=== PATIENT | male | born 1960 | race Caucasian/White ===

== ENCOUNTER 2021-02-26 16:02 | Inpatient (IN) | payer BC ==
[2021-02-26 18:09] VITALS: BMI 28.0
[2021-02-26] MEDS ORDERED: guaiFENesin 200 MG/10 ML 10 ML UNIT-DOSE CUPS PO PRN (23:24)
[2021-02-26] MEDS ORDERED: P-EPHED 60MG/TRIPROLIDI 2.5MG TABLET PO PRN (23:24)
[2021-02-26] MEDS ORDERED: ACETAMINOPHEN 325 MG TABLET (FP) PO PRN (23:24)
[2021-02-26] MEDS ORDERED: MAG HYDROX/AL HYDROX/SIMETH 30 ML UNIT-DOSE CUP PO PRN (23:24)
[2021-02-26] MEDS ORDERED: NICOTINE POLACRILEX 2 MG GUM BC PRN (23:24)
[2021-02-26] MEDS ORDERED: MAGNESIUM CITRATE 300 ML BOTTLE PO PRN (23:24)
[2021-02-26] MEDS ORDERED: MAGNESIUM HYDROX 2400MG/30ML ORAL SUSPENSION 30 ML CUP PO PRN (23:24)
[2021-02-26] MEDS ORDERED: IBUPROFEN 400 MG TABLET (FP) PO PRN (23:24)
[2021-02-26] MEDS ORDERED: LOPERAMIDE HCL 2 MG CAPSULE PO PRN (23:24)
[2021-02-27] MEDS: hydrOXYzine PAMOATE 25 MG CAPSULE (FP) PO PRN (00:55)
[2021-02-27] MEDS: MELATONIN 5 MG TABLETS PO SCH ×2 (00:55→22:08)
[2021-02-27] MEDS ORDERED: METHADONE HCL 10 MG TABLET PO ONE (09:21)
[2021-02-27] MEDS ORDERED: METHADONE 80 MG, METHADONE 30 MG PO ONE (09:24)
[2021-02-27] MEDS ORDERED: METHADONE HCL 40 MG DISPERSABLE TABLET ONE (09:44)
[2021-02-27] MEDS ORDERED: METHADONE HCL 10 MG TABLET ONE (09:44)
[2021-02-27] MEDS: PRENATAL VITAMINS W/ FOLIC ACID TABLET (FP) PO SCH (09:53)
[2021-02-27 10:40] LABS: HEMATOCRIT 37.4 % (35.4-49); HEMOGLOBIN 12.5 GM/dL (11.7-16.9); MCH 29.1 pg (25.7-33.7); MCHC 33.3 g/dl (32.0-35.9); MEAN CELL VOLUME 87.3 fl (80-96); PLATELET COUNT 293 10^3/uL (134-434); RBC 4.28 M/mm3 (4.00-5.60); RDW 13.5 % (11.9-15.9); WHITE BLOOD COUNT 7.6 K/mm3 (4.0-10.0)
[2021-02-27 11:19] LABS: BLOOD UREA NITROGEN 14.6 mg/dL (7-18)
[2021-02-27 11:40] LABS: CREATININE 0.9 mg/dL (0.55-1.3)
[2021-02-27 11:41] LABS: ALBUMIN 3.5 g/dl (3.4-5.0)
[2021-02-27 11:59] LABS: BILIRUBIN,TOTAL 0.4 mg/dL (0.2-1)
[2021-02-27] MEDS ORDERED: TUBERCULIN PPD 5 TU/0.1ML VIAL ID ONE (15:43)
[2021-02-27] MEDS: THIAMINE HCL 100 MG TABLET (FP) PO SCH (22:08)
[2021-02-28] MEDS ORDERED: METHADONE HCL 40 MG DISPERSABLE TABLET ONE (04:14)
[2021-02-28] MEDS ORDERED: METHADONE HCL 10 MG TABLET ONE (04:14)
[2021-02-28] MEDS ORDERED: METHADONE HCL 10 MG TABLET PO SCH (06:00)
[2021-02-28] MEDS: METHADONE 80 MG, METHADONE 30 MG PO SCH (06:47)
[2021-02-28] MEDS: PRENATAL VITAMINS W/ FOLIC ACID TABLET (FP) PO SCH (09:35)
[2021-02-28] MEDS: hydrOXYzine PAMOATE 25 MG CAPSULE (FP) PO PRN (09:36)
[2021-02-28] MEDS: THIAMINE HCL 100 MG TABLET (FP) PO SCH (21:26)
[2021-02-28] MEDS: MELATONIN 5 MG TABLETS PO SCH (21:26)
[2021-03-01] MEDS ORDERED: METHADONE HCL 40 MG DISPERSABLE TABLET ONE (03:13)
[2021-03-01] MEDS ORDERED: METHADONE HCL 10 MG TABLET ONE (03:13)
[2021-03-01] MEDS: METHADONE 80 MG, METHADONE 30 MG PO SCH (06:51)
[2021-03-01] MEDS: PRENATAL VITAMINS W/ FOLIC ACID TABLET (FP) PO SCH (09:31)
[2021-03-01 13:49] LABS: EPI CELLS 3 /uL (0-25.1); HYALINE CASTS 1 /uL (0-3.1); URINE APPEARANCE CLEAR; URINE BACTERIA 6 /uL (0-1359); URINE BILIRUBIN NEGATIVE (NEGATIVE); URINE COLOR DK YELLOW; URINE GLUCOSE (UA) NEGATIVE (NEGATIVE); URINE KETONE NEGATIVE (NEGATIVE); URINE LEUK ESTERASE TRACE (NEGATIVE); URINE NITRITE NEGATIVE (NEGATIVE); URINE PROTEIN NEGATIVE (NEGATIVE); URINE RBC 9 /uL (0-23.9); URINE UROBILINOGEN 0.2 mg/dL (0.2-1.0); URINE WBC 8 /uL (0-25.8)
[2021-03-01] MEDS: THIAMINE HCL 100 MG TABLET (FP) PO SCH (21:26)
[2021-03-01] MEDS: MELATONIN 5 MG TABLETS PO SCH (21:26)
[2021-03-01] MEDS: hydrOXYzine PAMOATE 25 MG CAPSULE (FP) PO PRN (21:26)
[2021-03-01] MEDS ORDERED: ALBUTEROL SO4 HFA INHALER IH PRN (21:33)
[2021-03-02] MEDS ORDERED: METHADONE HCL 40 MG DISPERSABLE TABLET ONE (04:58)
[2021-03-02] MEDS ORDERED: METHADONE HCL 10 MG TABLET ONE (04:58)
[2021-03-02] MEDS: METHADONE 80 MG, METHADONE 30 MG PO SCH (06:59)
[2021-03-02] MEDS: PRENATAL VITAMINS W/ FOLIC ACID TABLET (FP) PO SCH (09:51)
[2021-03-02] MEDS ORDERED: ASPIRIN 81 MG CHEWABLE TABLETS PO SCH ×2 (11:45→12:00)
[2021-03-02] MEDS ORDERED: PATIENT'S OWN MEDICATION (NON-FORMULARY) (Amlodipine Besylate/Benazepril [Lotrel 10-20 Mg PO SCH (12:15)
[2021-03-02] MEDS: ASPIRIN 81 MG CHEWABLE TABLETS PO SCH (12:40)
[2021-03-02] MEDS ORDERED: PATIENT'S OWN MEDICATION (NON-FORMULARY) (Amlodipine Besylate/Benazepril [Lotrel 10-20 Mg PO ONE (13:00)
[2021-03-02] MEDS: THIAMINE HCL 100 MG TABLET (FP) PO SCH (21:08)
[2021-03-02] MEDS: ATORVASTATIN CA 20 MG TABLET (FP) PO SCH (21:08)
[2021-03-02] MEDS: SUVOREXANT 10 MG TABLET PO PRN (21:08)
[2021-03-03] MEDS ORDERED: METHADONE HCL 10 MG TABLET ONE (04:02)
[2021-03-03] MEDS ORDERED: METHADONE HCL 40 MG DISPERSABLE TABLET ONE (04:02)
[2021-03-03] MEDS: METHADONE 80 MG, METHADONE 30 MG PO SCH (06:45)
[2021-03-03] MEDS: PATIENT'S OWN MEDICATION (NON-FORMULARY) (Amlodipine Besylate/Benazepril [Lotrel 10-20 Mg PO SCH (09:50)
[2021-03-03] MEDS: ASPIRIN 81 MG CHEWABLE TABLETS PO SCH (09:50)
[2021-03-03] MEDS: PRENATAL VITAMINS W/ FOLIC ACID TABLET (FP) PO SCH (09:50)
[2021-03-03] MEDS ORDERED: PT OWN MED DRAWER 7, Y5N ONE (19:31)
[2021-03-03] MEDS: hydrOXYzine PAMOATE 25 MG CAPSULE (FP) PO PRN (21:12)
[2021-03-03] MEDS: ATORVASTATIN CA 20 MG TABLET (FP) PO SCH (21:12)
[2021-03-03] MEDS: THIAMINE HCL 100 MG TABLET (FP) PO SCH (21:12)
[2021-03-03] MEDS: ALBUTEROL SO4 HFA INHALER IH PRN (21:12)
[2021-03-03] MEDS: SUVOREXANT 10 MG TABLET PO PRN (21:13)
[2021-03-04] MEDS ORDERED: METHADONE HCL 10 MG TABLET ONE (02:04)
[2021-03-04] MEDS ORDERED: METHADONE HCL 40 MG DISPERSABLE TABLET ONE (02:05)
[2021-03-04] MEDS: METHADONE 80 MG, METHADONE 30 MG PO SCH (06:23)
[2021-03-04] MEDS: ALBUTEROL SO4 HFA INHALER IH PRN ×2 (08:28→21:20)
[2021-03-04] MEDS: PRENATAL VITAMINS W/ FOLIC ACID TABLET (FP) PO SCH (09:46)
[2021-03-04] MEDS: ASPIRIN 81 MG CHEWABLE TABLETS PO SCH (09:46)
[2021-03-04] MEDS: PATIENT'S OWN MEDICATION (NON-FORMULARY) (Amlodipine Besylate/Benazepril [Lotrel 10-20 Mg PO SCH (09:46)
[2021-03-04] MEDS: SUVOREXANT 10 MG TABLET PO PRN (21:20)
[2021-03-04] MEDS: hydrOXYzine PAMOATE 25 MG CAPSULE (FP) PO PRN (21:21)
[2021-03-04] MEDS: THIAMINE HCL 100 MG TABLET (FP) PO SCH (21:21)
[2021-03-04] MEDS: ATORVASTATIN CA 20 MG TABLET (FP) PO SCH (21:21)
[2021-03-05] MEDS ORDERED: METHADONE HCL 10 MG TABLET ONE (04:57)
[2021-03-05] MEDS ORDERED: METHADONE HCL 40 MG DISPERSABLE TABLET ONE (04:58)
[2021-03-05] MEDS: METHADONE 80 MG, METHADONE 30 MG PO SCH (06:24)
[2021-03-05 07:08] VITALS: BP 141/62; PULSE 75; TEMP 96.9
[2021-03-05] MEDS: ALBUTEROL SO4 HFA INHALER IH PRN (08:42)
[2021-03-05] MEDS: PATIENT'S OWN MEDICATION (NON-FORMULARY) (Amlodipine Besylate/Benazepril [Lotrel 10-20 Mg PO SCH (09:21)
[2021-03-05] MEDS: ASPIRIN 81 MG CHEWABLE TABLETS PO SCH (09:21)
[2021-03-05] MEDS: PRENATAL VITAMINS W/ FOLIC ACID TABLET (FP) PO SCH (09:21)
[2021-03-05] MEDS: hydrOXYzine PAMOATE 25 MG CAPSULE (FP) PO PRN (09:23)
== END 2021-03-05 09:25 | disposition home or self-care (01) | DRG 772 ==
LOC: YASAS 16:02 → EDBD 02-27 00:02 → Y5N 02-27 00:02
PROVIDERS: ADMIT Allergy & Immunology; ATTEND Allergy & Immunology
PROC: HZ42ZZZ Group Counseling for Substance Abuse Treatment, Cognitive-Behavioral (ICD-10-PCS; principal; 2021-02-27)
DX: F11.20 Opioid dependence, uncomplicated (principal); F14.20 Cocaine dependence, uncomplicated; F17.210 Nicotine dependence, cigarettes, uncomplicated; F19.282 Other psychoactive substance dependence with psychoactive substance-induced sleep disorder; F41.9 Anxiety disorder, unspecified; I10 Essential (primary) hypertension; E11.9 Type 2 diabetes mellitus without complications; Z79.84 Long term (current) use of oral hypoglycemic drugs; J44.9 Chronic obstructive pulmonary disease, unspecified; M54.5 Low back pain; G89.29 Other chronic pain; Z86.19 Personal history of other infectious and parasitic diseases; Z85.46 Personal history of malignant neoplasm of prostate; Z90.79 Acquired absence of other genital organ(s)
CPT/HCPCS: 36415; 80053; 81003; 82962; 85027; 86780; C9803; U0003; U0005

== ENCOUNTER 2021-11-19 15:10 | Inpatient (IN) | payer BC ==
[2021-11-19 16:20] VITALS: BMI 27.1
[2021-11-19] MEDS ORDERED: MAG HYDROX/AL HYDROX/SIMETH 30 ML UNIT-DOSE CUP PO PRN (17:17)
[2021-11-19] MEDS ORDERED: BISMUTH SUBSALICYLATE 524 MG/30 ML PO PRN (17:17)
[2021-11-19] MEDS ORDERED: MAGNESIUM CITRATE 300 ML BOTTLE PO PRN (17:17)
[2021-11-19] MEDS ORDERED: MENTHOL/PHENOL 1 EACH UD MM PRN (17:17)
[2021-11-19] MEDS ORDERED: ONDANSETRON *ODT* 4 MG TABLET SL PRN (17:17)
[2021-11-19] MEDS ORDERED: ACETAMINOPHEN 325 MG TABLET (FP) PO PRN ×2 (17:17)
[2021-11-19] MEDS ORDERED: IBUPROFEN 400 MG TABLET (FP) PO PRN (17:17)
[2021-11-19] MEDS ORDERED: MAGNESIUM HYDROX 2400MG/30ML ORAL SUSPENSION 30 ML CUP PO PRN (17:17)
[2021-11-19] MEDS ORDERED: LOPERAMIDE HCL 2 MG CAPSULE PO PRN (17:17)
[2021-11-19] MEDS ORDERED: NICOTINE POLACRILEX 2 MG GUM BUC PRN (17:17)
[2021-11-19] MEDS: METHOCARBAMOL 500 MG TABLET PO PRN (20:45)
[2021-11-19] MEDS: hydrOXYzine PAMOATE 25 MG CAPSULE (FP) PO PRN (20:45)
[2021-11-19] MEDS: MELATONIN 5 MG TABLETS PO PRN (20:45)
[2021-11-19] MEDS ORDERED: ALBUTEROL SO4 HFA INHALER IH PRN (22:07)
[2021-11-19] MEDS ORDERED: diazePAM 5 MG TABLET PO PRN (22:07)
[2021-11-19] MEDS: INSULIN SLIDING SCALE (NOVOLOG) 1 VIAL SQ SCH (22:34)
[2021-11-19] MEDS: THIAMINE HCL 100 MG TABLET (FP) PO SCH (22:35)
[2021-11-20] MEDS: INSULIN SLIDING SCALE (NOVOLOG) 1 VIAL SQ SCH ×2 (06:24→16:58)
[2021-11-20] MEDS ORDERED: PATIENT'S OWN MEDICATION (NON-FORMULARY) (Amlodipine Besylate/Benazepril [Lotrel 10-20 Mg PO SCH (10:00)
[2021-11-20] MEDS: PRENATAL VITAMINS W/ FOLIC ACID TABLET (FP) PO SCH (10:13)
[2021-11-20] MEDS: amLODIPine BESYLATE 10 MG TABLET (FP) PO SCH (10:13)
[2021-11-20] MEDS: ASPIRIN 81 MG CHEWABLE TABLETS PO SCH (10:13)
[2021-11-20] MEDS: LISINOPRIL 20 MG TABLET PO SCH (10:13)
[2021-11-20 10:48] LABS: HEMATOCRIT 39.8 % (35.4-49); MCH 29.4 pg (25.7-33.7); MCHC 32.6 g/dl (32.0-35.9); MEAN CELL VOLUME 90.1 fl (80-96); MEAN PLT VOLUME 7.3 fl (7.5-11.1); PLATELET COUNT 310 10^3/uL (134-434); RBC 4.42 M/mm3 (4.00-5.60); RDW 13.8 % (11.9-15.9); WHITE BLOOD COUNT 9.5 K/mm3 (4.0-10.0)
[2021-11-20 11:18] LABS: CALCIUM 8.8 mg/dL (8.5-10.1)
[2021-11-20 11:19] LABS: ALBUMIN 3.7 g/dl (3.4-5.0)
[2021-11-20 11:22] LABS: CREATININE 1.1 mg/dL (0.55-1.3)
[2021-11-20 11:23] LABS: BILIRUBIN,TOTAL 0.4 mg/dL (0.2-1); TOT PROT 7.5 g/dl (6.4-8.2)
[2021-11-20] MEDS: methaDONE HCL 40 MG DISPERSABLE TABLET PO SCH (11:26)
[2021-11-20] MEDS: diazePAM 5 MG TABLET PO SCH ×3 (11:27→22:34)
[2021-11-20] MEDS: ATORVASTATIN CA 20 MG TABLET (FP) PO SCH (22:34)
[2021-11-20] MEDS: THIAMINE HCL 100 MG TABLET (FP) PO SCH (22:35)
[2021-11-20] MEDS: MELATONIN 5 MG TABLETS PO PRN (22:35)
[2021-11-21] MEDS: methaDONE HCL 40 MG DISPERSABLE TABLET PO SCH (05:51)
[2021-11-21] MEDS: diazePAM 5 MG TABLET PO SCH ×4 (05:56→23:05)
[2021-11-21] MEDS: INSULIN SLIDING SCALE (NOVOLOG) 1 VIAL SQ SCH ×2 (07:46→16:47)
[2021-11-21] MEDS: PRENATAL VITAMINS W/ FOLIC ACID TABLET (FP) PO SCH (10:18)
[2021-11-21] MEDS: ASPIRIN 81 MG CHEWABLE TABLETS PO SCH (10:18)
[2021-11-21] MEDS: amLODIPine BESYLATE 10 MG TABLET (FP) PO SCH (10:20)
[2021-11-21] MEDS: LISINOPRIL 20 MG TABLET PO SCH (10:20)
[2021-11-21] MEDS: ATORVASTATIN CA 20 MG TABLET (FP) PO SCH (23:05)
[2021-11-21] MEDS: THIAMINE HCL 100 MG TABLET (FP) PO SCH (23:05)
[2021-11-22] MEDS: diazePAM 5 MG TABLET PO SCH ×3 (05:21→22:07)
[2021-11-22] MEDS: methaDONE HCL 40 MG DISPERSABLE TABLET PO SCH (05:21)
[2021-11-22] MEDS: INSULIN SLIDING SCALE (NOVOLOG) 1 VIAL SQ SCH ×2 (06:25→16:35)
[2021-11-22] MEDS: diazePAM 5 MG TABLET PO PRN ×2 (08:31→17:41)
[2021-11-22] MEDS: ASPIRIN 81 MG CHEWABLE TABLETS PO SCH (10:04)
[2021-11-22] MEDS: amLODIPine BESYLATE 10 MG TABLET (FP) PO SCH (10:04)
[2021-11-22] MEDS: LISINOPRIL 20 MG TABLET PO SCH (10:04)
[2021-11-22] MEDS: PRENATAL VITAMINS W/ FOLIC ACID TABLET (FP) PO SCH (10:04)
[2021-11-22] MEDS: ATORVASTATIN CA 20 MG TABLET (FP) PO SCH (22:07)
[2021-11-22] MEDS: THIAMINE HCL 100 MG TABLET (FP) PO SCH (22:07)
[2021-11-23] MEDS: methaDONE HCL 40 MG DISPERSABLE TABLET PO SCH (05:15)
[2021-11-23] MEDS: diazePAM 5 MG TABLET PO SCH ×2 (05:15→17:47)
[2021-11-23] MEDS: INSULIN SLIDING SCALE (NOVOLOG) 1 VIAL SQ SCH ×2 (06:54→17:06)
[2021-11-23] MEDS: ASPIRIN 81 MG CHEWABLE TABLETS PO SCH (10:11)
[2021-11-23] MEDS: amLODIPine BESYLATE 10 MG TABLET (FP) PO SCH (10:11)
[2021-11-23] MEDS: PRENATAL VITAMINS W/ FOLIC ACID TABLET (FP) PO SCH (10:11)
[2021-11-23] MEDS: LISINOPRIL 20 MG TABLET PO SCH (10:11)
[2021-11-23] MEDS: METHOCARBAMOL 500 MG TABLET PO PRN (10:13)
[2021-11-23] MEDS ORDERED: ALBUTEROL SO4 2.5/IPRATROPIUM 0.5 INH SOL 3 ML VIAL.NEB. NEB ONE (11:40)
[2021-11-23] MEDS ORDERED: ALBUTEROL SO4 2.5/IPRATROPIUM 0.5 INH SOL 3 ML VIAL.NEB. NEB PRN (11:47)
[2021-11-23] MEDS: hydrOXYzine PAMOATE 25 MG CAPSULE (FP) PO PRN (21:57)
[2021-11-23] MEDS: MELATONIN 5 MG TABLETS PO PRN (21:57)
[2021-11-23] MEDS: ATORVASTATIN CA 20 MG TABLET (FP) PO SCH (21:57)
[2021-11-23] MEDS: THIAMINE HCL 100 MG TABLET (FP) PO SCH (21:57)
[2021-11-24] MEDS: methaDONE HCL 40 MG DISPERSABLE TABLET PO SCH (05:31)
[2021-11-24] MEDS ORDERED: diazePAM 5 MG TABLET PO ONE (06:00)
[2021-11-24] MEDS: INSULIN SLIDING SCALE (NOVOLOG) 1 VIAL SQ SCH (06:18)
[2021-11-24 09:10] VITALS: BP 114/55; PULSE 63; TEMP 96.6
[2021-11-24] MEDS: LISINOPRIL 20 MG TABLET PO SCH (10:13)
[2021-11-24] MEDS: amLODIPine BESYLATE 10 MG TABLET (FP) PO SCH (10:13)
[2021-11-24] MEDS: PRENATAL VITAMINS W/ FOLIC ACID TABLET (FP) PO SCH (10:13)
[2021-11-24] MEDS: ASPIRIN 81 MG CHEWABLE TABLETS PO SCH (10:13)
== END 2021-11-24 10:58 | disposition home or self-care (01) | DRG 773 ==
LOC: YASAS 15:10 → Y3N 20:15
PROVIDERS: ADMIT Allergy & Immunology; ATTEND Allergy & Immunology
PROC: HZ2ZZZZ Detoxification Services for Substance Abuse Treatment (ICD-10-PCS; principal; 2021-11-19)
DX: F10.230 Alcohol dependence with withdrawal, uncomplicated (principal); F11.20 Opioid dependence, uncomplicated; F14.20 Cocaine dependence, uncomplicated; F17.210 Nicotine dependence, cigarettes, uncomplicated; F19.24 Other psychoactive substance dependence with psychoactive substance-induced mood disorder; G47.00 Insomnia, unspecified; J45.901 Unspecified asthma with (acute) exacerbation; J44.9 Chronic obstructive pulmonary disease, unspecified; I10 Essential (primary) hypertension; E11.9 Type 2 diabetes mellitus without complications; Z79.84 Long term (current) use of oral hypoglycemic drugs; Z86.19 Personal history of other infectious and parasitic diseases; Z85.46 Personal history of malignant neoplasm of prostate; Z90.79 Acquired absence of other genital organ(s); Z88.0 Allergy status to penicillin
CPT/HCPCS: 36415; 80053; 82962; 85027; 86780; 87811; 94640; C9803-CS; U0003; U0005

== ENCOUNTER 2023-07-11 23:41 | Inpatient (IN) | payer BC ==
[2023-07-11 15:23] VITALS: BMI 27.1
[~2023-07-11 23:41] MED LIST: ACETAMINOPHEN 325 MG TABLET (FP) PO PRN; ALBUTEROL SO4 HFA INHALER IH ONE; BENZOCAINE/MENTHOL (CHLORASEPTIC ) LOZENGE MM PRN; BENZONATATE 200 MG CAPSULE PO PRN; COLLOIDAL OATMEAL 1 BAR EACH TP PRN; IBUPROFEN 400 MG TABLET (FP) PO PRN; LOPERAMIDE HCL 2 MG CAPSULE PO PRN; MAG HYDROX/AL HYDROX/SIMETH 30 ML UNIT-DOSE CUP PO PRN; MAGNESIUM HYDROX 2400MG/30ML ORAL SUSPENSION 30 ML CUP PO PRN; NALOXONE HCL (KLOXXADO) 8 MG SPRAY NS PRN; NALOXONE HCL 0.4 MG/ML VIAL IM PRN; POLYETHYLENE GLYCOL (HEALTHYLAX) 3350 17 GM PACKET PO PRN; TIOTROPIUM/OLODATEROL HCL (STIOLTO) 4 GM INHALER IH PRN; cloNIDine HCL 0.1 MG TABLET ONE; cloNIDine HCL 0.1 MG TABLET PO STA; guaiFENesin 600 MG TABLET.ER (FP) PO PRN; hydrOXYzine PAMOATE 25 MG CAPSULE (FP) PO PRN
[2023-07-12] MEDS: THIAMINE HCL 100 MG TABLET (FP) PO SCH ×2 (01:40→21:07)
[2023-07-12] MEDS: MELATONIN 5 MG TABLETS PO SCH ×2 (01:40→21:07)
[2023-07-12] MEDS: NICOTINE 14 MG/24 HOURS TOPICAL PATCH TD SCH ×2 (02:04→10:29)
[2023-07-12] MEDS: PRENATAL VITAMINS W/ FOLIC ACID TABLET (FP) PO SCH ×2 (02:04→10:29)
[2023-07-12] MEDS: metFORMIN HCL 500 MG TABLET (FP) PO SCH ×2 (06:34→17:06)
[2023-07-12 10:11] LABS: CHLORIDE 105 mmol/L (98-107); POTASSIUM 4.5 mmol/L (3.5-5.1); SODIUM 140 mmol/L (136-145)
[2023-07-12 10:18] LABS: ALBUMIN 3.3 g/dl (3.4-5.0); ANION GAP 5 mmol/L (4-13); BLOOD UREA NITROGEN 14.7 mg/dL (7-18); CALCIUM 8.8 mg/dL (8.5-10.1); CO2 29 mmol/L (21-32); GLUCOSE,RANDOM 170 mg/dL (74-106)
[2023-07-12 10:19] LABS: CREATININE 0.9 mg/dL (0.55-1.3); SGPT/ALT 32 U/L (13-61)
[2023-07-12 10:21] LABS: BILIRUBIN,TOTAL 0.4 mg/dL (0.2-1); SGOT/AST 20 U/L (15-37)
[2023-07-12 10:22] LABS: TOT PROT 7.2 g/dl (6.4-8.2)
[2023-07-12 10:23] LABS: ALK PHOS 55 U/L (45-117)
[2023-07-12] MEDS: ATORVASTATIN CA 20 MG TABLET (FP) PO SCH (10:29)
[2023-07-12 10:34] LABS: HEMATOCRIT 41.5 % (35.4-49); HEMOGLOBIN 14.2 GM/dL (11.7-16.9); MCHC 34.3 g/dl (32.0-35.9); MEAN CELL VOLUME 87.6 fl (80-96); MEAN PLT VOLUME 6.9 fl (7.5-11.1); PLATELET COUNT 251 10^3/uL (134-434); RBC 4.74 M/mm3 (4.00-5.60); RDW 13.1 % (11.9-15.9); WHITE BLOOD COUNT 6.3 K/mm3 (4.0-10.0)
[2023-07-12] MEDS: methaDONE HCL 40 MG DISPERSABLE TABLET PO SCH (10:54)
[2023-07-12 11:31] LABS: PH,URINE 7.5 (5.0-8.0); URINE APPEARANCE CLEAR; URINE BILIRUBIN NEGATIVE (NEGATIVE); URINE COLOR YELLOW; URINE GLUCOSE (UA) NEGATIVE (NEGATIVE); URINE KETONE NEGATIVE (NEGATIVE); URINE LEUK ESTERASE NEGATIVE (NEGATIVE); URINE NITRITE NEGATIVE (NEGATIVE); URINE PROTEIN NEGATIVE (NEGATIVE); URINE UROBILINOGEN 0.2 mg/dL (0.2-1.0)
[2023-07-12 11:33] LABS: SYPHILIS W/ RPR CONF NON-REACTIVE (NONREACTIVE)
[2023-07-12] MEDS ORDERED: TUBERCULIN PPD 5 TU/0.1ML SYRINGE (IN PATIENT USE ONLY) ID ONE (12:00)
[2023-07-12] MEDS ORDERED: PATIENT'S OWN MEDICATION (NON-FORMULARY) (Amlodipine Besylate/Benazepril [Lotrel 10-20 Mg PO SCH (17:13)
[2023-07-12] MEDS: LISINOPRIL 20 MG TABLET PO SCH (17:33)
[2023-07-12] MEDS: amLODIPine BESYLATE 10 MG TABLET (FP) PO SCH (17:33)
[2023-07-12] MEDS ORDERED: SUVOREXANT 10 MG TABLET PO PRN (22:00)
[2023-07-13] MEDS: IBUPROFEN 600 MG TABLET (FP) PO PRN ×2 (01:56→10:36)
[2023-07-13] MEDS: ALBUTEROL SO4 HFA INHALER IH PRN ×2 (02:40→06:44)
[2023-07-13] MEDS: metFORMIN HCL 500 MG TABLET (FP) PO SCH (06:35)
[2023-07-13] MEDS: methaDONE HCL 40 MG DISPERSABLE TABLET PO SCH (06:35)
[2023-07-13 07:04] VITALS: RESP 18
[2023-07-13] MEDS: ATORVASTATIN CA 20 MG TABLET (FP) PO SCH (10:32)
[2023-07-13] MEDS: amLODIPine BESYLATE 10 MG TABLET (FP) PO SCH (10:35)
[2023-07-13] MEDS: PRENATAL VITAMINS W/ FOLIC ACID TABLET (FP) PO SCH (10:35)
[2023-07-13] MEDS: LISINOPRIL 20 MG TABLET PO SCH (10:35)
[2023-07-13] MEDS: NICOTINE 14 MG/24 HOURS TOPICAL PATCH TD SCH (10:40)
[2023-07-13 10:50] VITALS: BP 141/62; PULSE 55; TEMP 97.5
== END 2023-07-13 14:29 | disposition left against medical advice (07) | DRG 770 ==
LOC: YASAS 23:41 → Y3W 07-12 00:55
PROVIDERS: ADMIT Allergy & Immunology; ATTEND Allergy & Immunology
PROC: HZ42ZZZ Group Counseling for Substance Abuse Treatment, Cognitive-Behavioral (ICD-10-PCS; principal; 2023-07-12)
DX: F11.20 Opioid dependence, uncomplicated (principal); F14.20 Cocaine dependence, uncomplicated; F17.210 Nicotine dependence, cigarettes, uncomplicated; F41.9 Anxiety disorder, unspecified; I10 Essential (primary) hypertension; J44.9 Chronic obstructive pulmonary disease, unspecified; E11.9 Type 2 diabetes mellitus without complications; Z79.84 Long term (current) use of oral hypoglycemic drugs; Z85.46 Personal history of malignant neoplasm of prostate; Z90.79 Acquired absence of other genital organ(s); Z86.19 Personal history of other infectious and parasitic diseases; R07.9 Chest pain, unspecified; R06.02 Shortness of breath
CPT/HCPCS: 36415; 80053; 80307; 81003; 82962; 85027; 86780; 86803; 87522; 87635; 87811; 93005; 93010; J3535